=== PATIENT | female | born 1985 | race Caucasian/White ===

== ENCOUNTER 2017-05-14 15:34 | Emergency (ER) | payer OTHER ==
[~2017-05-14] VITALS: Wt 108.9 kg
[~2017-05-14 15:34] MED LIST: ANAPROX DS550 MG PO; BIAXIN500 MG PO; CLARITIN10 MG PO; CLINDAMYCIN HC300 MG PO; CLINDAMYCIN150 MG PO; DARVOCET N 1001 TAB PO; FLEXERIL5 MG PO; HYDROCODONE BIT1 T11 PO; IBU800 M1 PO; MOTRIN800 MG PO; Motrin,Rufen800 MG PO; NKHM; TRAMADOL HCL50 MG PO; ULTRAM50 MG PO; VICODIN 5/500 505 MG PO; ZANTAC150 MG PO; ZITHROMAX Z PA250 MG PO; ZOFRAN4 MG PO
[2017-05-14 15:41] VITALS: BP 140/76
[2017-05-14 15:56] LABS: BASO % 0.3 % (0.0-1.0); EOS # 0.2 10*3/uL (0.0-0.4); EOS % 1.6 % (1.0-4.0); HEMATOCRIT 38.4 % (37.0-47.0); LYMPH # 2.4 10*3/uL (1.3-4.4); LYMPH % 21.6 % (27.0-41.0); MEAN CELL VOLUME 84.8 fl (81.0-99.0); MEAN CORPUSCULAR HGB 28.7 pg (27.0-31.0); MEAN CORPUSCULAR HGB CONC 33.9 g/dl (33.0-37.0); MONO # 0.5 10*3/uL (0.1-1.0); MONO % 4.3 % (3.0-9.0); NEUT # 7.8 10*3/uL (2.3-7.9); NEUT % 71.7 % (47.0-73.0); PLATELET COUNT AUTOMATED 220 10*3/uL (130-400); RED BLOOD COUNT 4.53 10*6/uL (4.10-5.10); RED CELL DISTRI WIDTH 12.9 % (0-14.5); WHITE BLOOD COUNT 10.9 10*3/uL (4.8-10.8)
[2017-05-14 15:59] LABS: BILIRUBIN NEGATIVE (NEGATIVE); BLOOD NEGATIVE (NEGATIVE); CLARITY SL CLOUDY (CLEAR); COLOR YELLOW (YELLOW); GLUCOSE NEGATIVE (NEGATIVE); KETONE NEGATIVE (NEGATIVE); LEUKO ESTERASE NEGATIVE (NEGATIVE); NITRITE NEGATIVE (NEGATIVE); PH 6.5 (5.0-9.0); UROBILINOGEN 0.2 E.U./dl (0.2-1.0)
[2017-05-14 16:09] LABS: BACTERIA TRACE; EPITHELIAL CELLS 16-20
[2017-05-14 16:12] LABS: ALBUMIN 3.8 gm/dl (3.1-4.5); ALKALINE PHOSPHATASE 49 U/L (45-117); BUN 7 mg/dl (7-24); CHLORIDE 106 mmol/L (98-107); CREATININE 0.88 mg/dL (0.55-1.02); LIPASE 259 U/L (73-393); POTASSIUM 4.1 mmol/L (3.5-5.1); SGOT/AST 15 IU/L (3-35); SGPT/ALT 18 U/L (12-78); SODIUM 139 mmol/L (136-145); TOTAL PROTEIN 7.5 gm/dL (6.4-8.2)
[2017-05-14] MEDS ORDERED: NAPROSYN500 MG PO (16:42)
[2017-05-14] MEDS ORDERED: VIBRAMYCIN100 MG PO (16:42)
== END 2017-05-14 16:45 | disposition home or self-care (01) ==
LOC: ED 15:34
PROVIDERS: Nurse Practitioner Family
DX: L03.311 Cellulitis of abdominal wall (principal); R03.0 Elevated blood-pressure reading, without diagnosis of hypertension; R21 Rash and other nonspecific skin eruption; F17.200 Nicotine dependence, unspecified, uncomplicated; Z88.1 Allergy status to other antibiotic agents

== ENCOUNTER 2017-05-17 18:47 | Inpatient (IN) | payer OTHER ==
[~2017-05-17] VITALS: Ht 180.3 cm; Wt 110.7 kg
[~2017-05-17 18:47] MED LIST changes: +NAPROSYN500 MG PO; +VIBRAMYCIN100 MG PO
[2017-05-17 18:51] VITALS: BP 154/82
[2017-05-17 19:42] LABS: BASO % 0.4 % (0.0-1.0); EOS # 0.3 10*3/uL (0.0-0.4); EOS % 3.5 % (1.0-4.0); HEMATOCRIT 35.8 % (37.0-47.0); HEMOGLOBIN 12.1 g/dl (12.0-16.0); LYMPH # 2.4 10*3/uL (1.3-4.4); LYMPH % 30.5 % (27.0-41.0); MEAN CORPUSCULAR HGB 28.7 pg (27.0-31.0); MEAN CORPUSCULAR HGB CONC 33.8 g/dl (33.0-37.0); MEAN PLATELET VOLUME 11.2 fl (9.6-12.3); MONO # 0.4 10*3/uL (0.1-1.0); MONO % 4.6 % (3.0-9.0); NEUT # 4.9 10*3/uL (2.3-7.9); NEUT % 60.8 % (47.0-73.0); PLATELET COUNT AUTOMATED 203 10*3/uL (130-400); RED BLOOD COUNT 4.21 10*6/uL (4.10-5.10); RED CELL DISTRI WIDTH 12.8 % (0-14.5)
[2017-05-17 20:04] LABS: ALKALINE PHOSPHATASE 50 U/L (45-117); BUN 5 mg/dl (7-24); CHLORIDE 107 mmol/L (98-107); POTASSIUM 3.4 mmol/L (3.5-5.1); SGOT/AST 12 IU/L (3-35); SGPT/ALT 16 U/L (12-78); SODIUM 141 mmol/L (136-145); TOTAL PROTEIN 7.4 gm/dL (6.4-8.2)
[2017-05-17 20:08] LABS: TROPONIN I < 0.015 ng/ml (<0.045)
[2017-05-17 21:23] VITALS: BP 105/53
--- NOTE | 2017-05-17 21:23 | NUR ---
Time: 2122 A 32 year old female admitted to under services of URIEL MEJIA DO, Pt. arrived via stretcher from ER. Chief complaint: redness around umbilical area and purulent, foul drainage in belly button since tuesday. [facility] CO[facility]
[2017-05-17 21:42] VITALS: BP 105/53
--- NOTE | 2017-05-17 23:14 | NUR ---
REQUESTED AND RECEIVED NORCO PER PRN ORDER FOR COMPLAINTS OF PAIN TO UMBILICUS RATING A 7. CALL LIGHT WITHIN REACH. WILL MONITOR FOR EFFECTIVENESS
[2017-05-18] VITALS: BP 100/60; BP 115/96
--- NOTE | 2017-05-18 00:15 | NUR ---
AWAKE BUT DROWSY. RESTING IN BED. STATES RELIEF FROM EARLIER NORCO. RESPIRATIONS EASY. LUNGS CLEAR. PULSE OX 100% RA. DRESSING REMOVED FROM UMBILICUS, PURULENT DRAINING NOTED. SITE RED, WARM, AND EDEMATOUS. UMBILICUS CLEANED WITH NSS AND DRY DRESSING APPLIED. IV FLUIDS INFUSING PER ORDER. CALL LIGHT WITHIN REACH. NO VOICED COMPLAINTS
--- NOTE | 2017-05-18 06:00 | NUR ---
SLEPT THROUGHOUT NIGHT WITH NO DISTRESS NOTED. RESPIRATIONS EASY. DRESSING MAINTAINED TO ABD. IV FLUDIS INFUSING PER ORDER. CALL LIGHT WITHIN REACH.
[2017-05-18 07:04] LABS: BASO % 0.5 % (0.0-1.0); EOS # 0.2 10*3/uL (0.0-0.4); EOS % 3.8 % (1.0-4.0); HEMATOCRIT 31.6 % (37.0-47.0); HEMOGLOBIN 10.7 g/dl (12.0-16.0); LYMPH # 2.1 10*3/uL (1.3-4.4); LYMPH % 36.3 % (27.0-41.0); MEAN CELL VOLUME 86.3 fl (81.0-99.0); MEAN CORPUSCULAR HGB 29.2 pg (27.0-31.0); MEAN CORPUSCULAR HGB CONC 33.9 g/dl (33.0-37.0); MEAN PLATELET VOLUME 11.7 fl (9.6-12.3); MONO # 0.4 10*3/uL (0.1-1.0); MONO % 7.6 % (3.0-9.0); NEUT % 51.5 % (47.0-73.0); PLATELET COUNT AUTOMATED 155 10*3/uL (130-400); RED BLOOD COUNT 3.66 10*6/uL (4.10-5.10); WHITE BLOOD COUNT 5.8 10*3/uL (4.8-10.8)
[2017-05-18 07:31] LABS: CHLORIDE 112 mmol/L (98-107); SODIUM 143 mmol/L (136-145)
[2017-05-18 07:44] LABS: ALKALINE PHOSPHATASE 40 U/L (45-117); BUN 6 mg/dl (7-24); CREATININE 0.62 mg/dL (0.55-1.02); SGOT/AST 10 IU/L (3-35); SGPT/ALT 14 U/L (12-78); TOTAL PROTEIN 5.8 gm/dL (6.4-8.2)
[2017-05-18 08:00] VITALS: BP 103/57
--- NOTE | 2017-05-18 08:53 | NUR ---
Aircraft [employer] Dismant[employer] in to talk to patient. Patient states lives at [address] with HER CHILDREN. There are 3 steps in the home. Physician: DR PARIKH [facility]acy: [facility] services: NONE Patient's level of ADLs: INDEPENDENT Patient has working utilities: YES DME: NONE Follow-up physician's appointment after d/c: WILL BE MADE PRIOR TO DC Does patient want to access PORTAL?: Discharge plan HOME. MASON LEVIN
--- NOTE | 2017-05-18 10:26 | NUR ---
Pt asked if she could walk across the street with visitor. I explained to her that she could not due to our policy. She immediately started to cry, states she really needs a cigarette. States she feels like she is being help prisoner. I asked pt if she would like to try a nicoderm patch that the Dr could order this for her. Visitor in room states its not really the nicotine but the act of smoking that relaxes her. I said that we also have nicotrol inhalers that the Dr. could order if she would like to try this. She said she would try but states she may leave if she has to. I spoke with Dr. Royal, gave telephone order for inhaler.
--- NOTE | 2017-05-18 11:20 | NUR ---
Pt states she feels much better after using nicotrol inhaler.
[2017-05-18 12:00] VITALS: BP 106/44
--- NOTE | 2017-05-18 14:22 | NUR ---
Requested something for pain. Pt asked what she had ordered. Reviewed all pain medications ordered. Pt states she just wants tylenol. Given at this time for complaints of pain to umbilicus.
[2017-05-18 16:00] VITALS: BP 109/59
--- NOTE | 2017-05-18 19:49 | NUR ---
patient resting in bed watching tv. no needs made. states nicotine inhaler is working well. dressing to umbulicus dry and intact, no drainage noted. bed in lowest position, call light in reach
[2017-05-18 20:00] VITALS: BP 120/65
--- NOTE | 2017-05-18 21:55 | NUR ---
patient medicated with prn norco for abd pain rated 6/10 on a 0/10 pain scale
--- NOTE | 2017-05-18 22:33 | NUR ---
med rec reviewed with patient at this time
[2017-05-19] VITALS: BP 106/47
--- NOTE | 2017-05-19 01:28 | NUR ---
PATIENT RESTING IN BED WITH EYES CLOSED. RESPS EASY AND REGULAR. NO S/S OF DISTRESS. BED IN LOWEST POSITION, CALL LIGHT IN REACH
--- NOTE | 2017-05-19 05:38 | NUR ---
24 HR chart check completed.
[2017-05-19 05:46] LABS: BASO % 0.4 % (0.0-1.0); EOS # 0.2 10*3/uL (0.0-0.4); EOS % 3.4 % (1.0-4.0); HEMOGLOBIN 10.4 g/dl (12.0-16.0); LYMPH # 2.1 10*3/uL (1.3-4.4); LYMPH % 42.2 % (27.0-41.0); MEAN CELL VOLUME 87.1 fl (81.0-99.0); MEAN CORPUSCULAR HGB 29.2 pg (27.0-31.0); MEAN CORPUSCULAR HGB CONC 33.5 g/dl (33.0-37.0); MEAN PLATELET VOLUME 11.8 fl (9.6-12.3); MONO # 0.3 10*3/uL (0.1-1.0); MONO % 6.2 % (3.0-9.0); NEUT # 2.4 10*3/uL (2.3-7.9); NEUT % 47.6 % (47.0-73.0); PLATELET COUNT AUTOMATED 137 10*3/uL (130-400); RED BLOOD COUNT 3.56 10*6/uL (4.10-5.10); RED CELL DISTRI WIDTH 12.9 % (0-14.5)
[2017-05-19 05:55] LABS: BUN 6 mg/dl (7-24); CHLORIDE 111 mmol/L (98-107); CREATININE 0.67 mg/dL (0.55-1.02); POTASSIUM 3.9 mmol/L (3.5-5.1); SODIUM 142 mmol/L (136-145)
[2017-05-19 08:00] VITALS: BP 108/72
--- NOTE | 2017-05-19 08:52 | NUR ---
MATCH[employer] VS. NO DC NEEDS.
[2017-05-19 12:00] VITALS: BP 102/50
[2017-05-19] MEDS ORDERED: BACTRIM 400-801 EACH PO (12:14)
--- NOTE | 2017-05-19 15:50 | NUR ---
PATIENT DISCHARGED TO HOME. ALL PERSONAL BELONGINGS SENT WITH PATIENT. IV DISCONTINUED. DISCHARGE INSTRUCTIONS GIVEN AND REVIEWED WITH PATIENT. PATIENT INFORMED THAT PRESCRIPTION WAS CALLED IN TO HER PHARMACY.
== END 2017-05-19 15:50 | disposition home or self-care (01) | DRG 602 ==
LOC: ED 18:47 → 4E 20:41 → EDHOLD 20:41 → 4E 20:57
PROVIDERS: Family Medicine; Nurse Practitioner Family; Student in an Organized Health Care Education/Training Program; ADMIT Internal Medicine
DX: L03.311 Cellulitis of abdominal wall (principal); E43 Unspecified severe protein-calorie malnutrition; E87.6 Hypokalemia; R73.9 Hyperglycemia, unspecified; F17.210 Nicotine dependence, cigarettes, uncomplicated; D39.8 Neoplasm of uncertain behavior of other specified female genital organs; E66.9 Obesity, unspecified; R03.0 Elevated blood-pressure reading, without diagnosis of hypertension; R00.1 Bradycardia, unspecified; R19.00 Intra-abdominal and pelvic swelling, mass and lump, unspecified site; Z71.6 Tobacco abuse counseling; Z90.49 Acquired absence of other specified parts of digestive tract; Z85.41 Personal history of malignant neoplasm of cervix uteri; Z88.0 Allergy status to penicillin; Z88.8 Allergy status to other drugs, medicaments and biological substances; Z79.899 Other long term (current) drug therapy; Z68.34 Body mass index [BMI] 34.0-34.9, adult

== ENCOUNTER → 2021-04-16 | Outpatient (CLI) | payer OTHER ==
[~2021-04-16] MED LIST changes: +BACTRIM 400-801 EACH PO
== END | disposition home or self-care (01) ==
LOC: US 14:49
PROVIDERS: ATTEND Nurse Practitioner Women's Health
DX: D27.1 Benign neoplasm of left ovary (principal); N83.8 Other noninflammatory disorders of ovary, fallopian tube and broad ligament